=== PATIENT | female | born 1990 | race Caucasian/White ===

== ENCOUNTER 2019-12-27 20:48 | Emergency (ER) | payer OTHER ==
[2019-12-27 20:58] VITALS: BP 109/69; PULSE 118; TEMP 102.3; BMI 23.0
[2019-12-27] MEDS ORDERED: ACETAMINOPHEN/CAFFEINE/BUTALBITAL 1 TAB PO ONE (21:53)
[2019-12-27] MEDS ORDERED: IBUPROFEN 400 MG TABLET (FP) PO ONE ×3 (21:53→22:03)
--- NOTE | 2019-12-27 21:57 | PDOC ---
History of Present Illness - General Chief Complaint: Sore Throat Stated Complaint: FEVER Time Seen by Provider: 12/27/19 21:40 History Source: Patient Exam Limitations: Clinical Condition - History of Present Illness Initial Comments: 12/27/19 21:54 Patient with significant past medical history present with complaint of 1 day history of nasal congestion, runny nose, sore throat, fevers, chills, body aches and intermittent cough. Patient report taking Tylenol 6 hours ago for fever. Denies nausea, vomiting, shortness of breath, palpitation. Denies sick contact or recent travel. Denies any other symptoms Is this a multiple visit Asthma Patient?: No Timing/Duration: 4-6 hours Past History - Past Medical History Allergies/Adverse Reactions: Allergies Allergy/AdvReac Type Severity Reaction Status Date / Time No Known Allergies Allergy Verified 12/27/19 20:58 Home Medications: Ambulatory Orders Amox-Tr/K Cl [Augmentin - 875Mg Tablet] 1 tab PO BID #14 tablet 12/27/19 Ipratropium [place] 2 spray NS BID PRN 5 Days #1 spray 12/27/19 Methylprednisolone [Medrol Dose Boom] 4 mg PO ASDIR #21 tablet 12/27/19 COPD: No - Psycho Social/Smoking Cessation Hx Smoking History: Never smoked Review of Systems - Review of Systems Able to Perform ROS?: Yes Is the patient limited German proficient: No Constitutional: Yes: Chills, Fever, Malaise HEENTM: Yes: Symptoms Reported, See HPI, Nose Congestion, Throat Pain. No: Eye Pain, Blurred Vision, Tearing, Recent change in vision, Double Vision, Cataracts, Ear Pain, Ocular Prothesis, Ear Discharge, Nose Pain, Tinnitus, Nose Bleeding, Hearing Loss, Throat Swelling, Mouth Pain, Dental Problems, Difficulty Swallowing, Mouth Swelling, Other Respiratory: No: Symptoms reported, See HPI, Cough, Orthopnea, Shortness of Breath, SOB with Exertion, SOB at Rest, Stridor, Wheezing, Productive cough, Hemoptysis, Other Cardiac (ROS): No: Symptoms Reported, See HPI, Chest Pain, Edema, Irregular Heart Rate, Lightheadedness, Palpitations, Syncope, Chest Tightness, Other ABD/GI: No: Symptoms Reported, See HPI, Nausea, Vomiting All Other Systems: Reviewed and Negative *Physical Exam - Vital Signs Last Vital Signs Temp Pulse Resp BP Pulse Ox 102.3 F H 118 H 18 109/69 99 12/27/19 20:56 12/27/19 20:56 12/27/19 20:56 12/27/19 20:56 12/27/19 20:56 - Physical Exam 12/27/19 21:56 GENERAL: Well developed, well nourished. Awake and alert. No acute distress. HEENT: Normocephalic, atraumatic. PERRLA, EOMI. No conjunctival pallor. Sclera are non-icteric. Moist mucous membranes. Oropharynx is clear. NECK: Supple. Full ROM. CARDIOVASCULAR: Regular rate and rhythm. No murmurs, rubs, or gallops. Distal pulses are 2+ and symmetric. PULMONARY: No evidence of respiratory distress. Lungs clear to auscultation bilaterally. No wheezing, rales or rhonchi. ABDOMINAL: Soft. Non-tender. Non-distended. No rebound or guarding. No organomegaly. Normoactive bowel sounds. MUSCULOSKELETAL Normal range of motion at all joints. SKIN: Warm and dry. Normal capillary refill. No rashes. No cyanosis NEUROLOGICAL: Alert, awake, appropriate. Gait is normal without ataxia. PSYCHIATRIC: Cooperative. Good eye contact. Appropriate mood General Appearance: Yes: Nourished, Appropriately Dressed. No: Apparent Distress Medical Decision Making - Medical Decision Making 12/27/19 21:55 Patient with significant past medical history present with complaint of 1 day history of nasal congestion, runny nose, sore throat, fevers, chills, body aches and intermittent cough. Patient report taking Tylenol 6 hours ago for fever. Denies nausea, vomiting, shortness of breath, palpitation. Denies sick contact or recent travel. Denies any other symptoms Exam significant for fever of 102.6 F with patient sleeping in bed due to headache. Lungs clear to auscultation bilateral. Patient in no acute distress and no abdominal tenderness. Patient symptoms likely viral URI versus strep. Rapid strep and rapid flu ordered. Motrin ordered for fever and Fioricet ordered for headache. Treat based on lab results 12/27/19 22:29 Rapid strep positive. Rapid flu negative. Patient stable for outpatient management Augmentin antibiotics twice daily for a week and Medrol Boom for strep tonsillitis with advised to increase fluid intake and alternate between Tylenol Motrin as needed for fever with PCP follow-up Discharge - Discharge Information Problems reviewed: Yes Clinical Impression/Diagnosis: Strep pharyngitis, URI, acute Fever Qualifiers: Fever type: unspecified Qualified Code(s): R50.9 - Fever, unspecified Condition: Stable Disposition: HOME - Admission No - Additional Discharge Information Prescriptions: Amox-Tr/K Cl [Augmentin - 875Mg Tablet] 1 tab PO BID #14 tablet Ipratropium [place] 2 spray NS BID PRN 5 Days #1 spray PRN Reason: nasal congestion Methylprednisolone [Medrol Dose Boom] 4 mg PO ASDIR #21 tablet - Follow up/Referral - Patient Discharge Instructions Patient Printed Discharge Instructions: DI for Strep Throat Additional Instructions: Your flu test was negative. Your strep test was positive. Take prescribed medication as prescribed for strep. Increase fluid intake. Alternate between Tylenol Motrin as needed for fever. Follow-up with primary care - Post Discharge Activity
[2019-12-27] MEDS ORDERED: ACETAMINOPHEN/CAFFEINE/BUTALBITAL 1 TAB ONE (22:00)
== END 2019-12-27 22:36 | disposition home or self-care (01) ==
LOC: JERFT 20:48
DX: J02.0 Streptococcal pharyngitis (principal); B95.0 Streptococcus, group A, as the cause of diseases classified elsewhere; J06.9 Acute upper respiratory infection, unspecified; R51 Headache
CPT/HCPCS: 87804; 87880; 99283-25

== ENCOUNTER 2024-04-07 13:46 | Emergency (ER) | payer OTHER ==
[2024-04-07 13:54] VITALS: BP 119/77; PULSE 101; RESP 18; TEMP 99.4; BMI 25.7
[2024-04-07] MEDS ORDERED: ACETAMINOPHEN INJECTION 100 ML IVPB ONE (14:53)
[2024-04-07] MEDS ORDERED: ONDANSETRON 4 MG/2 ML VIAL ONE (14:53)
[2024-04-07] MEDS: SODIUM CHLORIDE 0.9% 500 ML INFUS.BAG IV ONE (15:05)
[2024-04-07] MEDS: ONDANSETRON 4 MG/2 ML VIAL IVPUSH ONE (15:05)
[2024-04-07] MEDS: ACETAMINOPHEN 1000 MG/100 ML BAG IVPB ONE (15:05)
[2024-04-07 15:21] LABS: BASO % 0.2 % (0-2.0); EOS % 0.2 % (0-4.5); HEMATOCRIT 38.2 % (32.4-45.2); HEMOGLOBIN 13.1 GM/dL (10.7-15.3); LYMPH % 3.5 % (8-40); MCH 29.1 pg (25.7-33.7); MCHC 34.3 g/dl (32.0-36.0); MEAN CELL VOLUME 84.9 fl (80-96); MEAN PLT VOLUME 6.9 fl (7.5-11.1); MONO % 8.7 % (3.8-10.2); NEUT % 87.4 % (42.8-82.8); PLATELET COUNT 275 10^3/uL (134-434); RDW 12.7 % (11.6-15.6); WHITE BLOOD COUNT 11.3 K/mm3 (4.0-10.0)
[2024-04-07 15:39] LABS: POTASSIUM 3.9 mmol/L (3.5-5.1)
[2024-04-07 15:41] LABS: CALCIUM 8.7 mg/dL (8.5-10.1)
[2024-04-07 15:42] LABS: BLOOD UREA NITROGEN 6.2 mg/dL (7-18)
[2024-04-07 15:45] LABS: CREATININE 0.6 mg/dL (0.55-1.3)
[2024-04-07 15:46] LABS: BILIRUBIN,TOTAL 0.3 mg/dL (0.2-1)
[2024-04-07 15:47] LABS: TOT PROT 7.5 g/dl (6.4-8.2)
[2024-04-07 16:56] LABS: URINE APPEARANCE CLEAR; URINE BILIRUBIN NEGATIVE (NEGATIVE); URINE COLOR YELLOW; URINE GLUCOSE (UA) NEGATIVE (NEGATIVE); URINE KETONE TRACE (NEGATIVE); URINE LEUK ESTERASE NEGATIVE (NEGATIVE); URINE NITRITE NEGATIVE (NEGATIVE); URINE PROTEIN NEGATIVE (NEGATIVE); URINE UROBILINOGEN 0.2 mg/dL (0.2-1.0)
== END 2024-04-07 17:04 | disposition home or self-care (01) ==
LOC: JER 13:46
PROC: 3E033NZ Introduction of Analgesics, Hypnotics, Sedatives into Peripheral Vein, Percutaneous Approach (ICD-10-PCS; principal; 2024-04-07)
PROC: 3E033GC Introduction of Other Therapeutic Substance into Peripheral Vein, Percutaneous Approach (ICD-10-PCS; 2024-04-07)
DX: O98.512 Other viral diseases complicating pregnancy, second trimester (principal); U07.1 COVID-19; O21.9 Vomiting of pregnancy, unspecified; O99.891 Other specified diseases and conditions complicating pregnancy; R51.9 Headache, unspecified; M54.2 Cervicalgia; Z3A.14 14 weeks gestation of pregnancy
CPT/HCPCS: 0241U-QW; 36415; 80053; 81003; 83690; 83735; 84439; 84443; 85025; 87086; 93005; 93010; 99284-25; J0131